=== PATIENT | male | born 1970 | race Caucasian/White ===

== ENCOUNTER 2018-03-06 22:35 | Emergency (ER) | payer BC ==
[2018-03-06] MEDS ORDERED: DIPH,PERTUS(ACELL)TETVAC-LF 0.5 ML VIAL IM ONE ×2 (23:20)
== END 2018-03-07 00:11 | disposition home or self-care (01) ==
LOC: EC 22:35
DX: S61.211A Laceration without foreign body of left index finger without damage to nail, initial encounter (principal); W31.89XA Contact with other specified machinery, initial encounter
CPT/HCPCS: 90715; 99282

== ENCOUNTER 2018-04-13 22:24 | Emergency (ER) | payer BC ==
[2018-04-13 22:42] LABS: Glucose,Whole Blood 100 mg/dL (75-99)
[2018-04-13 22:44] LABS: Basophils % (A) 1 %; Eosinophils # (A) 0.2 k/uL (0-0.7); Eosinophils % (A) 2 %; HGB 14.5 gm/dL (13.0-17.5); Lymphocytes # (A) 1.8 k/uL (1.0-4.8); Lymphocytes % (A) 20 %; MCH 32.2 pg (25.0-35.0); MCHC 34.4 g/dL (31.0-37.0); MCV 93.7 fL (80.0-100.0); Mean Platelet Volume 6.5; Monocytes # (A) 0.4 k/uL (0-1.0); Monocytes % (A) 4 %; Neutrophils # (A) 6.6 k/uL (1.3-7.7); Neutrophils % (A) 72 %; Platelet Count 324 k/uL (150-450); RBC 4.49 m/uL (4.30-5.90); RDW 12.5 % (11.5-15.5); WBC 9.2 k/uL (3.8-10.6)
[2018-04-13 22:52] LABS: INR 1.2 (<1.2); Partial Thromboplastin Time 24.1 sec (22.0-30.0); Prothrombin Time 11.3 sec (9.0-12.0)
--- NOTE | 2018-04-13 22:53 | XR ---
EXAMINATION TYPE: XR chest 1V portable DATE OF EXAM: 04/13/2018 COMPARISON: NONE HISTORY: Chest pain. Trauma TECHNIQUE: Single frontal view of the chest is obtained. FINDINGS: There is no heart failure nor confluent pneumonic infiltrate. Heart and mediastinum are no rmal. There is no sign of pleural effusion or pneumothorax. IMPRESSION: No active cardiopulmonary disease.
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
[2018-04-13 22:55] LABS: ALT 33 U/L (21-72); AST 25 U/L (17-59); Albumin 4.3 g/dL (3.5-5.0); Alkaline Phosphatase 88 U/L (38-126); Amylase 58 U/L (30-110); Anion Gap 14 mmol/L; Blood Urea Nitrogen 12 mg/dL (9-20); Calcium 8.7 mg/dL (8.4-10.2); Carbon Dioxide 22 mmol/L (22-30); Chloride 100 mmol/L (98-107); Glucose 98 mg/dL (74-99); Lipase 162 U/L (23-300); Potassium 4.1 mmol/L (3.5-5.1); Sodium 136 mmol/L (137-145); Total Bilirubin 0.4 mg/dL (0.2-1.3); Total Protein 6.5 g/dL (6.3-8.2)
[2018-04-13 23:03] LABS: Alcohol 288 mg/dL
[2018-04-13] MEDS ORDERED: ONDANSETRON 4 MG/2 ML VIAL IVP STA (23:11)
[2018-04-13] MEDS ORDERED: DIPH,PERTUS(ACELL)TETVAC-LF 0.5 ML VIAL IM ONE (23:17)
--- NOTE | 2018-04-13 23:21 | CT ---
EXAMINATION TYPE: CT brain allan feliciano DATE OF EXAM: 04/13/2018 COMPARISON: None HISTORY: Trauma CT DLP: 1428.30 mGycm Automated exposure control for dose reduction was used. TECHNIQUE: CT scan of the head and cervical spine are performed without contrast. FINDINGS: There is a 45 x 18 mm elongated high attenuation area in the left occipital lobe convexit y consistent with acute epidural hematoma. There is no midline shift. Ventricles have normal size. Th ere is left mild occipital scalp soft tissue swelling. I see no skull fracture. There is straightening of the cervical spine. There is degenerative disc space narrowing from C4 to C 7 with spurring of the endplates. There is multilevel mild facet arthropathy. The skull base is intac t. There are some fibrotic changes at the lung apices. IMPRESSION: Acute epidural left occipital hematoma. Small scalp hematoma. This exam was discussed with JORGE feliz at 11:20 PM.
[2018-04-13 23:23] LABS: Creatine Kinase 115 U/L (55-170)
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
[2018-04-13 23:35] LABS: Creatine Kinase MB 1.3 ng/mL (0.0-2.4); Troponin I <0.012 ng/mL (0.000-0.034)
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
--- NOTE | 2018-04-13 23:35 | XR ---
EXAMINATION TYPE: XR hand complete RT DATE OF EXAM: 04/13/2018 COMPARISON: NONE HISTORY: Right hand pain TECHNIQUE: 3 views FINDINGS: I see no fracture nor dislocation. Joint spaces are normal. Metacarpals are intact. IMPRESSION: Negative right hand exam.
[2018-04-14 00:41] VITALS: BP 105/62; PULSE 56; RESP 15; TEMP 97
== END 2018-04-13 23:40 | disposition other institution (70) ==
LOC: EC 22:24
DX: S06.4X0A Epidural hemorrhage without loss of consciousness, initial encounter (principal); S22.089A Unspecified fracture of T11-T12 vertebra, initial encounter for closed fracture; S40.211A Abrasion of right shoulder, initial encounter; S60.511A Abrasion of right hand, initial encounter; S80.211A Abrasion, right knee, initial encounter; F10.120 Alcohol abuse with intoxication, uncomplicated; R40.2412 Glasgow coma scale score 13-15, at arrival to emergency department; Z23 Encounter for immunization; Y90.8 Blood alcohol level of 240 mg/100 ml or more; V18.4XXA Pedal cycle driver injured in noncollision transport accident in traffic accident, initial encounter; Y92.410 Unspecified street and highway as the place of occurrence of the external cause; Y93.55 Activity, bike riding
CPT/HCPCS: 36415; 93005; 86900; 86901; 80053; 82150; 82550; 82553; 83605; 83690; 84484; 85025; 85610; 85730; 86850; 80320; 72170; 73130; 71045; 72125; 70450; 71260; 74177; 90715; 99291; 96374; 90471; J2405; Q9967

== ENCOUNTER 2022-06-03 18:15 | Emergency (ER) | payer BC, OTHER ==
[2022-06-03 18:21] VITALS: PULSE 71; TEMP 98.1
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
--- NOTE | 2022-06-03 19:10 | XR ---
EXAMINATION TYPE: XR tibia fibula LT DATE OF EXAM: 06/03/2022 7:01 PM INDICATION: Patient age:Male; 51 years old; Reason for study: Wound; [facility]. COMPARISON: Wound, foreign object in leg TECHNIQUE: The left tibia/fibula was examined in AP and lateral projections. FINDINGS: No evidence for fracture or dislocation. Postsurgical changes of the left knee joint from p rior ligamentous repair. Moderate osteoarthritis of the medial knee joint compartment. Within the sup erficial soft tissues posterior to the aorta there is an 11 mm metallic fragment, best appreciated on lateral projections. No additional foreign bodies appreciated. IMPRESSION: 1. Metallic fragment within the posterior superficial soft tissues. 2. Moderate osteoarthritis of the knee joint. 3. No acute osseous abnormality.
[2022-06-03 20:27] VITALS: BP 129/74; RESP 15
== END 2022-06-03 20:27 | disposition home or self-care (01) ==
LOC: EC 18:15
DX: S81.802A Unspecified open wound, left lower leg, initial encounter (principal); F17.290 Nicotine dependence, other tobacco product, uncomplicated; F12.90 Cannabis use, unspecified, uncomplicated; W22.8XXA Striking against or struck by other objects, initial encounter
CPT/HCPCS: 99283